=== PATIENT | male | born 1985 | race Caucasian/White ===

== ENCOUNTER 2020-05-19 10:51 | Emergency (ER) | payer MEDICAID, OTHER ==
--- NOTE | 2020-05-19 10:56 | NUR ---
Patient arrived ambulatory to registration desk at 1051 with a female form grader reporting patient's chief c/o dental pain. Pt immediately began hysteronics of sobbing without tears and laid down on floor in front of registration desk grabbing pant legs of the female form grader. classification control clerk Sulema asking pt if there is something else wrong and could he get up as attempting to apply pt's ID bracelet. Female form grader looking down at pt and asking, "can you please get up for them?" This RN requested to to the window to assist, RN asking patient what is going on? Informed patient registration has merely placed his basic info in computer for allowing us to start account for Dr to assess patient. Pt was asked if he was able to move and get up. Add'l people in [facility] awaiting to reach registration desk. Staff nurse went for add'l help and wheelchair. Returned to registration area in [facility] and classification control clerk states patient just had got up and walked out the door. The patient is viewed getting into a vehicle and leaving with female form grader. Left without being seen and or signing.
== END 2020-05-19 10:56 | disposition left against medical advice (07) ==
LOC: ER FS 10:56
DX: K08.89 Other specified disorders of teeth and supporting structures (principal)